=== PATIENT | female | born 1995 | race Caucasian/White ===

== ENCOUNTER 2020-01-01 16:36 | Day surgery (SDC) | payer OTHER ==
[2020-01-01 17:22] VITALS: BMI 24.1
[2020-01-01] MEDS ORDERED: hydrALAZINE 20 MG/ML VIAL SLOW IVP PRN (18:06)
--- NOTE | 2020-01-01 18:25 | PRG ---
DATE OF SERVICE: 01/01/2020 HISTORY OF PRESENT ILLNESS: Ms. Hinds is a 24-year-old 1, para 0, with EDC of 01/06 placing her at 39 weeks today. She has had an uncomplicated . She was noted to have some isolated elevated systolics in the office today, was sent over for serial blood pressures and further evaluation. She reports that her headache that she had earlier in the day has resolved spontaneously. She reports an active fetus. MEDICAL SPECIALIST HISTORY: As noted. Blood type O negative, antibody negative. Pap negative. Rubella immune. VDRL nonreactive. Hepatitis B, GC, chlamydia negative. Group B strep negative on 12/17. PAST MEDICAL HISTORY: None. PAST SURGICAL HISTORY: None. ALLERGIES: DENIES. MEDICATIONS: vitamins. SOCIAL HISTORY: Denies tobacco, alcohol, or IV drug use. FAMILY HISTORY: Noncontributory. REVIEW OF SYSTEMS: Noncontributory. PHYSICAL EXAMINATION: GENERAL: White female, resting comfortably. VITAL SIGNS: Temperature 98.2, pulse 85, respirations 18. Serial blood pressures were carried out with systolics between 124 and 128 and diastolics between 72 and 78. HEENT: Within normal limits. LUNGS: Clear to auscultation bilaterally. HEART: Regular rate and rhythm. ABDOMEN: Soft and nontender without rebound or guarding. Fundal height of 39 cm. FHTs 140s to 150s. : Vulva without lesions. Vaginal exam deferred. EXTREMITIES: No clubbing, cyanosis, or edema. DTRs 1+. monitoring is carried out for greater than 30 minutes which revealed a category 1 heart rate tracing, positive accelerations, no decelerations, no contractions. IMPRESSION: No evidence of gestational hypertension or preeclampsia with serial blood pressures and prolonged monitoring. PLAN: Discharge home, keep scheduled followup with Dr. Pineda including preinduction COVID testing and induction of labor on 01/06. Job ID: [id number]
== END 2020-01-01 18:20 | disposition home or self-care (01) ==
LOC: L&D/OP 16:36
PROVIDERS: ATTEND Obstetrics & Gynecology
DX: O99.89 Other specified diseases and conditions complicating pregnancy, childbirth and the puerperium (principal); R03.0 Elevated blood-pressure reading, without diagnosis of hypertension; Z3A.39 39 weeks gestation of pregnancy
CPT/HCPCS: 99282

== ENCOUNTER 2020-01-07 19:15 | Inpatient (IN) | payer OTHER ==
[~2020-01-07 19:15] MED LIST: Bupivacaine/Epinephrine 0.25% 30 ML VIAL ONE
[2020-01-08] MEDS ORDERED: Misoprostol 100 MCG TAB VAG SCH (10:06)
[2020-01-08] MEDS ORDERED: HYDROcodone/Acetaminophen 5/325 mg Tablet PO PRN ×3 (10:06→20:19)
[2020-01-08] MEDS ORDERED: Promethazine HCl 25 MG/ML VIAL IM PRN ×3 (10:06→20:19)
[2020-01-08] MEDS ORDERED: Ondansetron PF 4 MG/2 ML Vial IVP PRN ×3 (10:06→20:19)
[2020-01-08] MEDS ORDERED: Lidocaine 1% (PF) 30 ML VIAL SC PRN (10:06)
[2020-01-08] MEDS ORDERED: Ibuprofen 800 MG TAB PO PRN (10:06)
[2020-01-08] MEDS ORDERED: hydrALAZINE 20 MG/ML VIAL SLOW IVP PRN ×2 (10:06→20:19)
[2020-01-08] MEDS ORDERED: NS / Oxytocin 40 units/1000ml 1,000 ML IV PRN (10:06)
[2020-01-08] MEDS ORDERED: Butorphanol Tartrate 1 MG/ML VIAL SLOW IVP PRN (10:06)
[2020-01-08 10:15] VITALS: BMI 24.1
[2020-01-08] MEDS ORDERED: NS w/ Oxytocin 10 units 500 ML ONE (10:27)
[2020-01-08] MEDS: Lactated Ringer's 1,000 ML IV SCH (10:30)
[2020-01-08 10:31] LABS: Hemoglobin 11.6 g/dL (12.0-16.0); Mean Corpuscular Hemoglobin 30.5 pg (27.0-31.0); Mean Corpuscular Volume 89.6 fL (78.0-98.0); Mean Platelet Volume 9.4 fL (7.4-10.4); Platelet Count 212 thou/uL (130-400); RBC Distribution Width 11.9 % (11.5-14.5); White Blood Cell (WBC) Count 13.5 thou/uL (4.8-10.8)
[2020-01-08 11:13] LABS: HBSAg Index 0.14 S/CO (0-0.99); Hep B Surf Ag Non-Reactive S/CO (NonReactive); Syphilis Antibody Nonreactive (Nonreactive); Syphilis Antibody Index 0.04 S/CO (<1.00 Non-Reactive)
[2020-01-08] MEDS ORDERED: Fentanyl 4 mcg/Bup 0.1% Cadd 100 ML ONE (12:22)
[2020-01-08] MEDS ORDERED: Fentanyl 100 MCG/2 ML VIAL ONE (13:42)
[2020-01-08] MEDS ORDERED: EPHEDRINE 25 MG/5 ML SYRINGE SLOW IVP PRN (13:48)
[2020-01-08] MEDS ORDERED: Naloxone HCl 0.4 mg/ml Vial IVP PRN ×2 (13:48)
[2020-01-08] MEDS ORDERED: Acetaminophen 325 MG TAB PO PRN (13:48)
[2020-01-08] MEDS ORDERED: Lactated Ringer's 500 ML IV PRN (13:48)
[2020-01-08] MEDS ORDERED: diphenhydrAMINE 50 MG/ML VIAL IVP PRN (13:48)
[2020-01-08] MEDS ORDERED: Communication Order-Pharmacy FS SCH (14:00)
[2020-01-08] MEDS ORDERED: Fentanyl 4 mcg/Bupivacaine 0.1% Cassette 100 ML EPIDURAL SCH (14:00)
--- NOTE | 2020-01-08 18:04 | PDOC.OPDEL ---
OB Operative/Delivery Note Delivery Dr/Surgeon: Edwin Pre-Delivery Diagnosis: medically indicated induction (prolonged ) Procedure/Post Delivery Dx: spontaneous vaginal delivery Weeks gestation: 40 Anesthesia: epidural - Findings A Sex: female - 1 min: 8 - 5 min: 9 - Additional Findings/Plan Placenta delivered: spontaneous Repaired Obstetrical Laceration: left labial Estimated blood loss: less than 100ml Post delivery plan: routine recovery
[2020-01-08] MEDS ORDERED: Preparation H Ointment 28 GM TUBE PR PRN (20:19)
[2020-01-08] MEDS ORDERED: Bisacodyl 10 MG SUPP PR PRN (20:19)
[2020-01-08] MEDS ORDERED: Benzocaine-Menthol 82.5 ML CAN TOP PRN (20:19)
[2020-01-08] MEDS ORDERED: Milk Of Magnesia 30 ML UDCUP PO PRN (20:19)
[2020-01-08] MEDS ORDERED: diphenhydrAMINE 25 MG CAP PO PRN (20:19)
[2020-01-08] MEDS ORDERED: NS / Oxytocin 40 units/1000ml 1,000 ML IV SCH (20:19)
[2020-01-08] MEDS: Ibuprofen 800 MG TAB PO SCH ×2 (22:42)
[2020-01-08] MEDS: Docusate Calcium (SURFAK) 240 MG CAP PO SCH (22:42)
[2020-01-09] MEDS: Ibuprofen 800 MG TAB PO SCH ×3 (05:24→22:25)
[2020-01-09] MEDS: HYDROcodone/Acetaminophen 5/325 mg Tablet PO PRN ×2 (06:31→11:38)
[2020-01-09] MEDS: Lactated Ringer's 1,000 ML IV SCH (07:05)
[2020-01-09] MEDS: Ferrous Sulfate 325 MG TAB PO SCH ×2 (07:10→16:45)
[2020-01-09] MEDS ORDERED: Adacel (T-DAP) 0.5 ML SYRINGE IM ONE (09:00)
[2020-01-09] MEDS: Docusate Calcium (SURFAK) 240 MG CAP PO SCH ×2 (09:27→22:25)
[2020-01-09] MEDS: Prenatal Vitamin 1 TAB PO SCH (09:27)
--- NOTE | 2020-01-09 09:43 | PDOC.PP ---
Post Progress Note Post Day #: 1 Subjective: doing well, no concerns, would like to go home today if baby can DC, urinating well now PO intake tolerated: yes Flatus: yes Ambulation: yes Vital Signs (12 hours) Temp Pulse Resp BP Pulse Ox 01/09/20 08:03 98.2 F 80 20 119/80 98 01/09/20 04:40 99.0 F 65 18 124/69 01/09/20 00:50 99.2 F 67 18 112/59 L 01/08/20 22:25 98.5 F 71 18 121/64 Weight Weight 154 lb - Physical Examination General: NAD Respiratory: non-labored breathing Abdominal: no distention Psychiatric: A&Ox3, normal affect Result Diagrams: 01/08/20 10:12 Additional Labs: Post Labs Blood Type O NEGATIVE 01/08/20 11:56 Hep Bs Antigen Non-Reactive S/CO (NonReactive) 01/08/20 10:12 (1) 40 weeks gestation of Code(s): Z3A.40 - 40 WEEKS GESTATION OF Status: Acute (2) Vaginal delivery Code(s): O80 - ENCOUNTER FOR FULL-TERM UNCOMPLICATED DELIVERY Status: Acute - Assessment/Plan PPD1 doing well, would like DC this evening if baby able to DC.
[2020-01-10] MEDS: Ibuprofen 800 MG TAB PO SCH (06:23)
--- NOTE | 2020-01-10 06:32 | PDOC.PP ---
Post Progress Note Post Day #: 2 Subjective: Doing well, states able to vois better. had some retention yesterday, resolved PO intake tolerated: yes Flatus: yes Ambulation: yes Vital Signs (12 hours) Temp Pulse Resp BP Pulse Ox 01/09/20 20:15 98.5 F 72 18 108/55 L 98 Weight Weight 154 lb Past vitals reviewed over last 24 hrs, wnl - Physical Examination General: NAD Cardiovascular: no m/r/g Respiratory: clear to auscultation bilaterally, non-labored breathing Abdominal: + bowel sounds, lochia, no distention, appropriately TTP Extremities: negative homans (B) Skin: no rash Neurological: no gross focal deficits Psychiatric: A&Ox3, normal affect Result Diagrams: 01/08/20 10:12 Additional Labs: Post Labs Blood Type O NEGATIVE 01/08/20 11:56 Hep Bs Antigen Non-Reactive S/CO (NonReactive) 01/08/20 10:12 (1) Vaginal delivery Code(s): O80 - ENCOUNTER FOR FULL-TERM UNCOMPLICATED DELIVERY Status: Acute - Assessment/Plan PPD2 OK for DC to home today. F/U as scheduled with
[2020-01-10] MEDS: Ferrous Sulfate 325 MG TAB PO SCH (07:49)
[2020-01-10 08:45] VITALS: BP 120/56; TEMP 98.2
[2020-01-10] MEDS: Docusate Calcium (SURFAK) 240 MG CAP PO SCH (10:39)
[2020-01-10] MEDS: Prenatal Vitamin 1 TAB PO SCH (10:40)
== END 2020-01-10 10:55 | disposition home or self-care (01) | DRG 807 ==
LOC: L&D 01-08 09:21 → 3SW 01-08 22:26
PROVIDERS: ADMIT Obstetrics & Gynecology; ATTEND Obstetrics & Gynecology
PROC: 10E0XZZ Delivery of Products of Conception, External Approach (ICD-10-PCS; principal; 2020-01-08)
PROC: 10907ZC Drainage of Amniotic Fluid, Therapeutic from Products of Conception, Via Natural or Artificial Opening (ICD-10-PCS; 2020-01-08)
PROC: 3E033VJ Introduction of Other Hormone into Peripheral Vein, Percutaneous Approach (ICD-10-PCS; 2020-01-08)
PROC: 0HQ9XZZ Repair Perineum Skin, External Approach (ICD-10-PCS; 2020-01-08)
DX: O77.0 Labor and delivery complicated by meconium in amniotic fluid (principal); Z37.0 Single live birth; Z3A.40 40 weeks gestation of pregnancy; O99.334 Smoking (tobacco) complicating childbirth; F17.200 Nicotine dependence, unspecified, uncomplicated; O70.0 First degree perineal laceration during delivery
CPT/HCPCS: 36415; 51702; 85027; 85461; 86780; 86850; 86900; 86901; 87340; 90384; 96372; J2590; J3010